=== PATIENT | female | born 1995 | race Caucasian/White ===

== ENCOUNTER 2021-08-30 14:39 | Emergency (ER) | payer OTHER ==
[2021-08-30] MEDS ORDERED: Lidocaine 1% (PF) 30 ML VIAL ONE (16:12)
== END 2021-08-30 16:31 | disposition home or self-care (01) ==
LOC: CSHERS 14:39
DX: O99.612 Diseases of the digestive system complicating pregnancy, second trimester (principal); K04.7 Periapical abscess without sinus; Z3A.24 24 weeks gestation of pregnancy
CPT/HCPCS: 64400; J2001